=== PATIENT | male | born 1955 | race Caucasian/White ===

== ENCOUNTER 2022-12-17 17:10 | Inpatient (IN) | payer OTHER ==
[2022-12-17] MEDS ORDERED: ALBUTEROL SO4 2.5/IPRATROPIUM 0.5 INH SOL 3 ML VIAL.NEB. NEB ONE ×2 (18:49→19:03)
[2022-12-17] MEDS ORDERED: VANCOMYCIN 1 GM in D5W (PRE-DOCKED) 1,000 MG/250 ML (RESTRICTED TO ID ONLY IVPB ONE (18:51)
[2022-12-17] MEDS ORDERED: PIPERACILLIN/TAZOB 3.375 GM 3.375 GM in DEXTROSE 5%-WATER - 50 ML IVPB ONE (18:53)
[2022-12-17 19:12] LABS: VENOUS BASE EXCESS 2.2 mmol/L (-2-2); VENOUS O2 SATURATION 47.4 % (70-80); VENOUS PCO2 59.8 mmHg (38-52); VENOUS PH 7.318 (7.310-7.410)
[2022-12-17 19:15] LABS: BASO % 0.8 % (0-2.0); EOS % 2.6 % (0-4.5); HEMATOCRIT 40.8 % (35.4-49); HEMOGLOBIN 13.6 GM/dL (11.7-16.9); LYMPH % 18.5 % (8-40); MCH 28.1 pg (25.7-33.7); MCHC 33.4 g/dl (32.0-35.9); MONO % 9.2 % (3.8-10.2); NEUT % 68.9 % (42.8-82.8); PLATELET COUNT 212 10^3/uL (134-434); RBC 4.86 M/mm3 (4.00-5.60); RDW 14.6 % (11.9-15.9)
[2022-12-17 19:24] LABS: INR 1.04 (0.83-1.09); PROTHROMBIN TIME (PATIENT) 12.1 SEC (9.7-13.0)
[2022-12-17 19:26] LABS: ACTIVATED PTT 29.1 SECONDS (25.2-36.5)
[2022-12-17 19:29] LABS: POTASSIUM 5.2 mmol/L (3.5-5.1)
[2022-12-17 19:31] LABS: ALBUMIN 2.3 g/dl (3.4-5.0); BLOOD UREA NITROGEN 22.1 mg/dL (7-18); CALCIUM 8.8 mg/dL (8.5-10.1)
[2022-12-17 19:32] LABS: MAGNESIUM 2.1 mg/dL (1.8-2.4)
[2022-12-17 19:36] LABS: BILIRUBIN,TOTAL 0.3 mg/dL (0.2-1); TOT PROT 6.6 g/dl (6.4-8.2)
[2022-12-17 19:39] LABS: N-TERMINAL BNP 455.6 pg/ml (5-125)
[2022-12-17] MEDS ORDERED: PIPERACILLIN/TAZOB 3.375 GM 3.375 GM/50 ML BAG IVPB ONE (19:43)
[2022-12-17] MEDS ORDERED: VANCOMYCIN/WATER FOR INJ (PEG) 1,000 MG/200 ML BAG IVPB ONE (19:43)
[2022-12-17] MEDS ORDERED: methylPREDNISolone NA SUCC 125 MG/2 ML VIAL IVPB ONE (20:09)
[2022-12-17] MEDS ORDERED: amLODIPine BESYLATE 10 MG TABLET (FP) PO ONE (20:44)
[2022-12-17] MEDS ORDERED: METOPROLOL TARTRATE 25 MG TABLET (FP) PO ONE (20:44)
[2022-12-17] MEDS ORDERED: LISINOPRIL 20 MG TABLET PO ONE (20:44)
[2022-12-17] MEDS: ALBUTEROL SO4 2.5/IPRATROPIUM 0.5 INH SOL 3 ML VIAL.NEB. NEB SCH ×4 (20:46→21:36)
[2022-12-17] MEDS ORDERED: LISINOPRIL 20 MG TABLET ONE (20:58)
[2022-12-17] MEDS ORDERED: METOPROLOL TARTRATE 25 MG TABLET (FP) ONE (20:58)
[2022-12-17] MEDS ORDERED: methylPREDNISolone NA SUCC 125 MG/2 ML VIAL ONE (20:59)
[2022-12-17] MEDS ORDERED: amLODIPine BESYLATE 10 MG TABLET (FP) ONE (20:59)
[2022-12-18] MEDS ORDERED: methaDONE HCL 10 MG TABLET (FOR DETOX USE ONLY) PO ONE (01:13)
[2022-12-18] MEDS ORDERED: hydrALAZINE HCL 20 MG/ML VIAL IVPUSH ONE (01:14)
[2022-12-18] MEDS ORDERED: chlordiazePOXIDE HCL 25 MG CAPSULE PO ONE (01:19)
[2022-12-18] MEDS ORDERED: methaDONE HCL 10 MG TABLET ONE (01:20)
[2022-12-18] MEDS ORDERED: hydrALAZINE HCL 20 MG/ML VIAL ONE (01:20)
[2022-12-18] MEDS ORDERED: chlordiazePOXIDE HCL 25 MG CAPSULE ONE (01:32)
[2022-12-18] MEDS ORDERED: PIPERACILLIN/TAZOB 3.375 GM 3.375 GM in DEXTROSE 5%-WATER - 50 ML IVPB SCH ×2 (03:15→03:30)
[2022-12-18] MEDS: cloNIDine HCL 0.1 MG TABLET PO PRN ×2 (03:20→21:02)
[2022-12-18] MEDS ORDERED: ALBUTEROL SO4 2.5/IPRATROPIUM 0.5 INH SOL 3 ML VIAL.NEB. NEB SCH (03:30)
[2022-12-18] MEDS: methylPREDNISolone NA SUCC 40 MG/1 ML VIAL IVPUSH SCH ×2 (03:41→09:20)
[2022-12-18] MEDS: chlordiazePOXIDE HCL 25 MG CAPSULE PO PRN ×2 (03:42→08:52)
[2022-12-18] MEDS: chlordiazePOXIDE HCL 25 MG CAPSULE PO SCH ×2 (04:31→12:39)
[2022-12-18 05:22] VITALS: BMI 33.0
[2022-12-18] MEDS ORDERED: LISINOPRIL 10 MG TABLET PO SCH ×2 (07:00→10:00)
[2022-12-18] MEDS ORDERED: INSULIN SLIDING SCALE (NOVOLOG) 1 VIAL SQ SCH ×2 (07:00)
[2022-12-18] MEDS: INSULIN SLIDING SCALE (NOVOLOG) 1 VIAL SQ SCH ×4 (08:04→22:06)
[2022-12-18] MEDS: LISINOPRIL 20 MG TABLET PO SCH ×3 (08:09→18:06)
[2022-12-18] MEDS: amLODIPine BESYLATE 10 MG TABLET (FP) PO SCH (08:09)
[2022-12-18 08:36] LABS: HEMATOCRIT 45.6 % (35.4-49); HEMOGLOBIN 15.3 GM/dL (11.7-16.9); MCHC 33.7 g/dl (32.0-35.9); MEAN CELL VOLUME 83.1 fl (80-96); MEAN PLT VOLUME 9.3 fl (7.5-11.1); PLATELET COUNT 215 10^3/uL (134-434); RBC 5.48 M/mm3 (4.00-5.60); RDW 14.6 % (11.9-15.9); WHITE BLOOD COUNT 11.8 K/mm3 (4.0-10.0)
[2022-12-18] MEDS: metoPROLOL SUCCINATE 25 MG TAB.SR.24H (FP) PO SCH (09:17)
[2022-12-18] MEDS: ENOXAPARIN NA (PORCINE) 40 MG/0.4 ML DISP.SYRIN SQ SCH (09:20)
[2022-12-18] MEDS: INSULIN (LEVEMIR) 100 UNITS/ML UNITS SQ SCH (09:22)
[2022-12-18] MEDS ORDERED: amLODIPine BESYLATE 10 MG TABLET (FP) PO SCH (10:00)
[2022-12-18] MEDS ORDERED: amLODIPine BESYLATE 5 MG TABLET (FP) PO SCH (10:00)
[2022-12-18] MEDS ORDERED: PATIENT'S OWN MEDICATION (NON-FORMULARY) (Insulin Glargine,Hum.Rec.Anlog 100 UNITS/ML Ins) SQ SCH (10:00)
[2022-12-18] MEDS ORDERED: FUROSEMIDE 40 MG/4 ML INJECTABLE VIAL IVPUSH SCH (10:00)
[2022-12-18 10:28] LABS: POTASSIUM 3.9 mmol/L (3.5-5.1)
[2022-12-18 10:33] LABS: ALBUMIN 2.5 g/dl (3.4-5.0); BLOOD UREA NITROGEN 19.1 mg/dL (7-18); CALCIUM 9.2 mg/dL (8.5-10.1)
[2022-12-18 10:36] LABS: PHOSPHOROUS 3.7 mg/dL (2.5-4.9)
[2022-12-18 10:37] LABS: TOT PROT 7.4 g/dl (6.4-8.2)
[2022-12-18 10:38] LABS: BILIRUBIN,TOTAL 0.5 mg/dL (0.2-1)
[2022-12-18] MEDS: ALBUTEROL SO4 2.5/IPRATROPIUM 0.5 INH SOL 3 ML VIAL.NEB. NEB SCH ×2 (12:05→20:00)
[2022-12-18] MEDS: CEFAZOLIN 1 GM in DEXTROSE 5%-WATER - 50 ML IVPB SCH ×2 (12:31→17:19)
[2022-12-18] MEDS ORDERED: LORazepam 2 MG/ML SDV VIAL IVPUSH PRN (12:45)
[2022-12-18] MEDS: CHLORTHALIDONE 25 MG TABLET PO SCH (13:06)
[2022-12-18] MEDS: INSULIN (NOVOLOG) ASPART 100 UNITS/ML 10ML VIAL SQ SCH ×2 (17:08→22:06)
[2022-12-18] MEDS ORDERED: LISINOPRIL 20 MG TABLET PO SCH (17:45)
[2022-12-18] MEDS ORDERED: ATORVASTATIN CA 80 MG TABLET (FP) PO SCH (22:00)
[2022-12-18] MEDS ORDERED: ATORVASTATIN CA 40 MG TABLET (FP) PO SCH (22:00)
[2022-12-18] MEDS ORDERED: CHLORTHALIDONE 25 MG TABLET PO ONE (22:00)
[2022-12-19] MEDS: CEFAZOLIN 1 GM in DEXTROSE 5%-WATER - 50 ML IVPB SCH ×3 (01:35→17:44)
[2022-12-19] MEDS ORDERED: chlordiazePOXIDE HCL 25 MG CAPSULE PO SCH (05:00)
[2022-12-19] MEDS: INSULIN SLIDING SCALE (NOVOLOG) 1 VIAL SQ SCH ×4 (06:24→23:33)
[2022-12-19] MEDS: INSULIN (NOVOLOG) ASPART 100 UNITS/ML 10ML VIAL SQ SCH ×4 (06:24→23:32)
[2022-12-19] MEDS: ALBUTEROL SO4 2.5/IPRATROPIUM 0.5 INH SOL 3 ML VIAL.NEB. NEB SCH ×4 (08:02→20:26)
[2022-12-19] MEDS: LISINOPRIL 20 MG TABLET PO SCH (09:05)
[2022-12-19] MEDS: metoPROLOL SUCCINATE 25 MG TAB.SR.24H (FP) PO SCH (09:06)
[2022-12-19] MEDS: amLODIPine BESYLATE 10 MG TABLET (FP) PO SCH (09:10)
[2022-12-19] MEDS: ENOXAPARIN NA (PORCINE) 40 MG/0.4 ML DISP.SYRIN SQ SCH (09:14)
[2022-12-19] MEDS: INSULIN (LEVEMIR) 100 UNITS/ML UNITS SQ SCH ×2 (09:15→23:31)
[2022-12-19] MEDS ORDERED: hydrALAZINE HCL 20 MG/ML VIAL IVPUSH ONE (09:46)
[2022-12-19] MEDS ORDERED: hydrALAZINE HCL 10 MG TABLET PO ONE (09:56)
[2022-12-19 10:45] LABS: HEMATOCRIT 49.4 % (35.4-49); HEMOGLOBIN 16.9 GM/dL (11.7-16.9); MCH 28.2 pg (25.7-33.7); MCHC 34.2 g/dl (32.0-35.9); MEAN CELL VOLUME 82.6 fl (80-96); MEAN PLT VOLUME 8.8 fl (7.5-11.1); PLATELET COUNT 256 10^3/uL (134-434); RBC 5.98 M/mm3 (4.00-5.60); RDW 14.2 % (11.9-15.9); WHITE BLOOD COUNT 21.1 K/mm3 (4.0-10.0)
[2022-12-19 10:59] LABS: POTASSIUM 3.2 mmol/L (3.5-5.1)
[2022-12-19 11:02] LABS: ALBUMIN 2.5 g/dl (3.4-5.0); CALCIUM 9.2 mg/dL (8.5-10.1); MAGNESIUM 2.3 mg/dL (1.8-2.4)
[2022-12-19 11:03] LABS: BLOOD UREA NITROGEN 24.6 mg/dL (7-18)
[2022-12-19 11:05] LABS: CREATININE 1.1 mg/dL (0.55-1.3)
[2022-12-19 11:07] LABS: BILIRUBIN,TOTAL 0.7 mg/dL (0.2-1); TOT PROT 7.3 g/dl (6.4-8.2)
[2022-12-19] MEDS ORDERED: CHLORTHALIDONE 25 MG TABLET PO SCH (13:15)
[2022-12-19] MEDS ORDERED: LABETALOL HCL 5 MG/1 ML (100MG/20 ML VIAL) IVPUSH ONE (15:59)
[2022-12-19] MEDS: CHLORTHALIDONE 25 MG TABLET PO SCH (16:29)
[2022-12-19] MEDS: LABETALOL HCL 200 MG TABLET (FP) PO SCH ×2 (17:09→21:29)
[2022-12-19] MEDS ORDERED: POTASSIUM CHLORIDE TABS 20 MEQ TABLET.ER (FP) PO ONE (18:36)
[2022-12-19] MEDS ORDERED: LORazepam 2 MG/ML SDV VIAL IVPUSH PRN (19:23)
[2022-12-19] MEDS ORDERED: cloNIDine HCL 0.1 MG TABLET PO PRN (19:23)
[2022-12-19] MEDS: ATORVASTATIN CA 40 MG TABLET (FP) PO SCH (21:28)
[2022-12-19] MEDS ORDERED: INSULIN (NOVOLOG) ASPART 100 UNITS/ML 10ML VIAL ONE (21:59)
[2022-12-19] MEDS ORDERED: LABETALOL HCL 200 MG TABLET (FP) PO SCH (22:00)
[2022-12-19] MEDS ORDERED: INSULIN (LEVEMIR) 100 UNITS/ML UNITS SQ ONE ×2 (22:00)
[2022-12-19] MEDS ORDERED: INSULIN (LEVEMIR) 100 UNITS/ML UNITS SQ SCH (22:00)
[2022-12-20] MEDS ORDERED: chlordiazePOXIDE HCL 10 MG CAPSULE PO PRN
[2022-12-20] MEDS: CEFAZOLIN 1 GM in DEXTROSE 5%-WATER - 50 ML IVPB SCH ×3 (02:18→17:36)
[2022-12-20] MEDS ORDERED: chlordiazePOXIDE HCL 10 MG CAPSULE PO SCH (05:00)
[2022-12-20] MEDS ORDERED: INSULIN (NOVOLOG) ASPART 100 UNITS/ML 10ML VIAL ONE ×3 (06:09→17:00)
[2022-12-20] MEDS: LABETALOL HCL 200 MG TABLET (FP) PO SCH ×3 (06:13→21:14)
[2022-12-20] MEDS: INSULIN (NOVOLOG) ASPART 100 UNITS/ML 10ML VIAL SQ SCH ×4 (06:13→21:43)
[2022-12-20] MEDS: INSULIN (LEVEMIR) 100 UNITS/ML UNITS SQ SCH ×2 (06:13→21:42)
[2022-12-20] MEDS: INSULIN SLIDING SCALE (NOVOLOG) 1 VIAL SQ SCH ×4 (06:14→21:42)
[2022-12-20 08:05] LABS: BASO % 0.4 % (0-2.0); EOS % 0.1 % (0-4.5); HEMATOCRIT 48.7 % (35.4-49); HEMOGLOBIN 16.1 GM/dL (11.7-16.9); MCH 27.9 pg (25.7-33.7); MCHC 33.1 g/dl (32.0-35.9); MEAN CELL VOLUME 84.4 fl (80-96); MEAN PLT VOLUME 9.2 fl (7.5-11.1); MONO % 8.1 % (3.8-10.2); NEUT % 76.4 % (42.8-82.8); PLATELET COUNT 229 10^3/uL (134-434); RBC 5.77 M/mm3 (4.00-5.60); RDW 14.6 % (11.9-15.9); WHITE BLOOD COUNT 13.1 K/mm3 (4.0-10.0)
[2022-12-20 08:14] LABS: POTASSIUM 3.6 mmol/L (3.5-5.1)
[2022-12-20 08:17] LABS: BLOOD UREA NITROGEN 30.6 mg/dL (7-18); CALCIUM 8.7 mg/dL (8.5-10.1); MAGNESIUM 2.2 mg/dL (1.8-2.4)
[2022-12-20 08:18] LABS: ALBUMIN 2.2 g/dl (3.4-5.0)
[2022-12-20 08:20] LABS: PHOSPHOROUS 3.6 mg/dL (2.5-4.9)
[2022-12-20 08:21] LABS: CREATININE 1.2 mg/dL (0.55-1.3)
[2022-12-20 08:22] LABS: BILIRUBIN,TOTAL 0.5 mg/dL (0.2-1); TOT PROT 6.6 g/dl (6.4-8.2)
[2022-12-20] MEDS: ALBUTEROL SO4 2.5/IPRATROPIUM 0.5 INH SOL 3 ML VIAL.NEB. NEB SCH ×4 (08:59→21:19)
[2022-12-20] MEDS: amLODIPine BESYLATE 10 MG TABLET (FP) PO SCH (09:40)
[2022-12-20] MEDS: LISINOPRIL 20 MG TABLET PO SCH (09:41)
[2022-12-20] MEDS: ENOXAPARIN NA (PORCINE) 40 MG/0.4 ML DISP.SYRIN SQ SCH (09:43)
[2022-12-20] MEDS: CHLORTHALIDONE 25 MG TABLET PO SCH (09:44)
[2022-12-20] MEDS ORDERED: metoPROLOL SUCCINATE 25 MG TAB.SR.24H (FP) PO SCH (10:00)
[2022-12-20] MEDS ORDERED: methaDONE HCL 10 MG TABLET PO ONE ×2 (10:00)
[2022-12-20] MEDS: ATORVASTATIN CA 40 MG TABLET (FP) PO SCH (21:14)
[2022-12-21] MEDS: CEFAZOLIN 1 GM in DEXTROSE 5%-WATER - 50 ML IVPB SCH ×2 (01:12→10:07)
[2022-12-21] MEDS ORDERED: chlordiazePOXIDE HCL 10 MG CAPSULE PO SCH (05:00)
[2022-12-21] MEDS: LABETALOL HCL 200 MG TABLET (FP) PO SCH (05:53)
[2022-12-21] MEDS: INSULIN SLIDING SCALE (NOVOLOG) 1 VIAL SQ SCH ×4 (06:21→22:11)
[2022-12-21] MEDS: INSULIN (NOVOLOG) ASPART 100 UNITS/ML 10ML VIAL SQ SCH ×4 (06:21→22:10)
[2022-12-21] MEDS: INSULIN (LEVEMIR) 100 UNITS/ML UNITS SQ SCH ×2 (06:28→22:10)
[2022-12-21 08:02] LABS: BASO % 0.2 % (0-2.0); EOS % 0.9 % (0-4.5); HEMATOCRIT 46.6 % (35.4-49); HEMOGLOBIN 15.6 GM/dL (11.7-16.9); LYMPH % 22.1 % (8-40); MCH 27.9 pg (25.7-33.7); MCHC 33.6 g/dl (32.0-35.9); MEAN PLT VOLUME 8.8 fl (7.5-11.1); MONO % 10.5 % (3.8-10.2); NEUT % 66.3 % (42.8-82.8); PLATELET COUNT 244 10^3/uL (134-434); RBC 5.62 M/mm3 (4.00-5.60); RDW 14.7 % (11.9-15.9); WHITE BLOOD COUNT 11.6 K/mm3 (4.0-10.0)
[2022-12-21 08:14] LABS: POTASSIUM 3.6 mmol/L (3.5-5.1)
[2022-12-21 08:22] LABS: CALCIUM 8.3 mg/dL (8.5-10.1)
[2022-12-21 08:23] LABS: ALBUMIN 2.2 g/dl (3.4-5.0); BLOOD UREA NITROGEN 37.6 mg/dL (7-18); MAGNESIUM 2.4 mg/dL (1.8-2.4)
[2022-12-21 08:26] LABS: CREATININE 1.4 mg/dL (0.55-1.3)
[2022-12-21 08:27] LABS: BILIRUBIN,TOTAL 0.6 mg/dL (0.2-1)
[2022-12-21 08:28] LABS: TOT PROT 6.2 g/dl (6.4-8.2)
[2022-12-21] MEDS: ALBUTEROL SO4 2.5/IPRATROPIUM 0.5 INH SOL 3 ML VIAL.NEB. NEB SCH ×4 (09:00→20:36)
[2022-12-21] MEDS: ENOXAPARIN NA (PORCINE) 40 MG/0.4 ML DISP.SYRIN SQ SCH (10:07)
[2022-12-21] MEDS: LISINOPRIL 20 MG TABLET PO SCH ×2 (10:07→13:41)
[2022-12-21] MEDS: amLODIPine BESYLATE 10 MG TABLET (FP) PO SCH ×2 (10:07→13:40)
[2022-12-21] MEDS: CHLORTHALIDONE 25 MG TABLET PO SCH ×2 (10:07→13:40)
[2022-12-21] MEDS: ATORVASTATIN CA 40 MG TABLET (FP) PO SCH (22:00)
[2022-12-21] MEDS ORDERED: INSULIN (NOVOLOG) ASPART 100 UNITS/ML 10ML VIAL ONE (22:08)
[2022-12-22] MEDS ORDERED: chlordiazePOXIDE HCL 10 MG CAPSULE PO ONE ×2 (05:00)
[2022-12-22] MEDS ORDERED: INSULIN (NOVOLOG) ASPART 100 UNITS/ML 10ML VIAL ONE (06:29)
[2022-12-22] MEDS: INSULIN (LEVEMIR) 100 UNITS/ML UNITS SQ SCH ×2 (06:30→21:29)
[2022-12-22] MEDS: INSULIN (NOVOLOG) ASPART 100 UNITS/ML 10ML VIAL SQ SCH ×4 (06:31→21:30)
[2022-12-22] MEDS: INSULIN SLIDING SCALE (NOVOLOG) 1 VIAL SQ SCH ×4 (06:32→21:30)
[2022-12-22 07:09] LABS: BASO % 0.5 % (0-2.0); EOS % 2.1 % (0-4.5); HEMATOCRIT 45.2 % (35.4-49); HEMOGLOBIN 15.2 GM/dL (11.7-16.9); LYMPH % 25.8 % (8-40); MCH 28.6 pg (25.7-33.7); MCHC 33.5 g/dl (32.0-35.9); MEAN CELL VOLUME 85.2 fl (80-96); MEAN PLT VOLUME 9.1 fl (7.5-11.1); MONO % 11.3 % (3.8-10.2); NEUT % 60.3 % (42.8-82.8); PLATELET COUNT 219 10^3/uL (134-434); RBC 5.31 M/mm3 (4.00-5.60); RDW 14.4 % (11.9-15.9); WHITE BLOOD COUNT 10.5 K/mm3 (4.0-10.0)
[2022-12-22 07:21] LABS: POTASSIUM 3.5 mmol/L (3.5-5.1)
[2022-12-22 07:23] LABS: CALCIUM 8.2 mg/dL (8.5-10.1)
[2022-12-22 07:24] LABS: ALBUMIN 2.3 g/dl (3.4-5.0); BLOOD UREA NITROGEN 40.6 mg/dL (7-18)
[2022-12-22 07:26] LABS: MAGNESIUM 2.4 mg/dL (1.8-2.4)
[2022-12-22 07:27] LABS: CREATININE 1.4 mg/dL (0.55-1.3)
[2022-12-22 07:28] LABS: BILIRUBIN,TOTAL 0.4 mg/dL (0.2-1); TOT PROT 6.2 g/dl (6.4-8.2)
[2022-12-22] MEDS ORDERED: ALBUTEROL SO4 2.5/IPRATROPIUM 0.5 INH SOL 3 ML VIAL.NEB. NEB PRN (07:48)
[2022-12-22] MEDS ORDERED: ACETAMINOPHEN 500 MG TABLET (FP) PO ONE (09:30)
[2022-12-22] MEDS ORDERED: methaDONE HCL 10 MG TABLET PO ONE ×2 (10:00)
[2022-12-22] MEDS: LIDOCAINE 5% TOPICAL PATCH TP SCH (10:12)
[2022-12-22] MEDS: ENOXAPARIN NA (PORCINE) 40 MG/0.4 ML DISP.SYRIN SQ SCH (10:12)
[2022-12-22] MEDS: MINERAL OIL/PET HY-PHL TOPICAL OINTMENT 454 GM JAR TP SCH ×2 (10:14→21:34)
[2022-12-22 15:13] LABS: ALLENS TEST POSITIVE; ARTERIAL BLD GAS O2 SATURATION 92.9 % (95-98); ARTERIAL BLOOD GAS PO2 60.9 mmHg (80-100); ARTERIAL BLOOD GAS pH 7.474 (7.350-7.450)
[2022-12-22] MEDS ORDERED: ACETAMINOPHEN 1000 MG/100 ML BAG IVPB ONE (21:09)
[2022-12-22] MEDS: ATORVASTATIN CA 40 MG TABLET (FP) PO SCH (21:21)
[2022-12-22] MEDS ORDERED: LIDOCAINE PATCH REMOVAL MC SCH (22:00)
[2022-12-23] MEDS: INSULIN (LEVEMIR) 100 UNITS/ML UNITS SQ SCH (06:22)
[2022-12-23] MEDS: INSULIN SLIDING SCALE (NOVOLOG) 1 VIAL SQ SCH ×2 (06:23→11:56)
[2022-12-23] MEDS: INSULIN (NOVOLOG) ASPART 100 UNITS/ML 10ML VIAL SQ SCH ×2 (06:23→11:56)
[2022-12-23] MEDS ORDERED: INSULIN (LEVEMIR) 100 UNITS/ML UNITS SQ SCH (07:35)
[2022-12-23 07:51] LABS: BASO % 0.3 % (0-2.0); EOS % 2.6 % (0-4.5); HEMATOCRIT 46.1 % (35.4-49); HEMOGLOBIN 15.3 GM/dL (11.7-16.9); LYMPH % 22.9 % (8-40); MCH 28.2 pg (25.7-33.7); MCHC 33.1 g/dl (32.0-35.9); MEAN CELL VOLUME 85.1 fl (80-96); MEAN PLT VOLUME 9.1 fl (7.5-11.1); MONO % 11.1 % (3.8-10.2); NEUT % 63.1 % (42.8-82.8); PLATELET COUNT 207 10^3/uL (134-434); RBC 5.42 M/mm3 (4.00-5.60); RDW 14.3 % (11.9-15.9); WHITE BLOOD COUNT 11.8 K/mm3 (4.0-10.0)
[2022-12-23 08:03] LABS: POTASSIUM 4.2 mmol/L (3.5-5.1)
[2022-12-23 08:10] LABS: ALBUMIN 2.4 g/dl (3.4-5.0); CALCIUM 8.7 mg/dL (8.5-10.1)
[2022-12-23 08:13] LABS: CREATININE 1.1 mg/dL (0.55-1.3)
[2022-12-23 08:15] LABS: BILIRUBIN,TOTAL 0.4 mg/dL (0.2-1); TOT PROT 6.4 g/dl (6.4-8.2)
[2022-12-23] MEDS: LIDOCAINE 5% TOPICAL PATCH TP SCH (09:08)
[2022-12-23] MEDS: ENOXAPARIN NA (PORCINE) 40 MG/0.4 ML DISP.SYRIN SQ SCH (09:08)
[2022-12-23] MEDS: LISINOPRIL 20 MG TABLET PO SCH (09:08)
[2022-12-23] MEDS: MINERAL OIL/PET HY-PHL TOPICAL OINTMENT 454 GM JAR TP SCH (09:10)
[2022-12-23 15:12] VITALS: BP 144/77; PULSE 67; RESP 19; TEMP 98.2
== END 2022-12-23 17:52 | disposition home or self-care (01) | DRG 291 ==
LOC: JER 17:10 → OBSVTOIN 21:46 → JERBED 21:46 → J5S 12-18 02:53 → J4W 12-19 18:40
PROVIDERS: ADMIT Internal Medicine; ATTEND Internal Medicine
PROC: HZ2ZZZZ Detoxification Services for Substance Abuse Treatment (ICD-10-PCS; principal; 2022-12-17)
DX: I11.0 Hypertensive heart disease with heart failure (principal); I50.33 Acute on chronic diastolic (congestive) heart failure; J96.01 Acute respiratory failure with hypoxia; F10.139 Alcohol abuse with withdrawal, unspecified; F11.20 Opioid dependence, uncomplicated; I16.0 Hypertensive urgency; E78.5 Hyperlipidemia, unspecified; F19.10 Other psychoactive substance abuse, uncomplicated; E11.65 Type 2 diabetes mellitus with hyperglycemia; E11.51 Type 2 diabetes mellitus with diabetic peripheral angiopathy without gangrene; F17.200 Nicotine dependence, unspecified, uncomplicated; M77.9 Enthesopathy, unspecified; J43.9 Emphysema, unspecified
CPT/HCPCS: 0241U-QW; 36415; 36600; 71045-TC-FY; 71250-TC; 80053; 80307; 82803; 82962; 83036; 83735; 83880; 84100; 84484; 85025; 85027; 85610; 85730; 93005; 93010; 93306-TC; 93970-TC; 94640; 94761; 97116-GP; 97162-GP; 99285-25